=== PATIENT | female | born 1940 | race Caucasian/White ===

== ENCOUNTER 2017-03-12 11:53 | Inpatient (IN) | payer MEDICARE, OTHER ==
[~2017-03-12] VITALS: Ht 172.7 cm; Wt 75.8 kg
--- NOTE | ~2017-03-12 | PR ---
[place], [place] PROGRESS NOTE NAME: STEPHENIE DEL RIO UNIT #: [id number] ROOM: 502 DOCTOR: BEAU DAMON MD BIRTHDATE: [birth year] DOS: SUBJECTIVE: The patient was seen in the Cardiology Department just prior to a stress test today. She is a 77-year-old woman who presented to the hospital with acute respiratory failure. She was noted on admission to have new anterior T-wave inversions which were not present on electrocardiogram done in May of this year. She did not have any elevation in cardiac biomarkers and did not have any symptoms of coronary artery disease. We have been waiting for her pulmonary process to improve prior to evaluating her heart more definitively. She did have an echocardiogram on 03/13/2017, which showed mild concentric left ventricular hypertrophy with normal regional wall motion systolic and diastolic function. Since her lungs are improving, we are proceeding with a pharmacologic stress test today. PHYSICAL EXAMINATION: VITAL SIGNS: Her pulse is 72 and regular, blood pressure 130/58. She is afebrile. NECK: Supple. She has no jugular distention. Carotids are full. LUNGS: Respirations are slightly labored at rest. She does have expiratory prolongation with scattered rhonchi and wheezes. There were no rales. She had no presacral edema. HEART: Had a regular rhythm with an S4 gallop, but no S3. ABDOMEN: Benign. EXTREMITIES: Showed no edema. IMPRESSION: 1. Acute respiratory failure. Symptoms have improved with aggressive pulmonary therapy. 2. Abnormal electrocardiogram demonstrating deep symmetric anterior T-wave inversions, suggesting the presence of coronary artery disease. 3. No evidence for acute myocardial injury at this time. PLAN: The patient will undergo a pharmacologic stress test. Further recommendations will depend upon the results of her examination. [place], [place] PROGRESS NOTE NAME: STEPHENIE DEL RIO UNIT #: [id number] ROOM: 502 DOCTOR: BEAU DAMON MD BIRTHDATE: [birth year] BEAU DAMON MD CM:PNTRANS [id number] BEAU DAMON MD 03/15/17 2256 interface
--- NOTE | ~2017-03-12 | PROC NOTE ---
[place], [place] PROCEDURE NOTE NAME: [id number] UN[facility] #: [id number] ROOM: 502 DOCTOR: SELINA LECHUGA MD,BHANU BIRTHDATE: [birth year] DOS: 03/16/2017 PREOPERATIVE DIAGNOSES: Persistent severe coughing and wheezing, not responding to current medical management. POSTOPERATIVE DIAGNOSES: Severe impaction with a mucus plug the patient noted mostly in the lower endobronchial tree for the patient's finding of acute tracheobronchitis. PROCEDURE DESCRIPTION: Informed consent obtained for the patient. She was brought to the OR and placed in supine position. Conscious sedation was administered by the Anesthesia Department. After achieving appropriate sedation, airway introduced into the mouth. Bronchoscope advanced into the airway into laryngeal area. Epiglottis and vocal cords were seen. The bronchoscope advanced through the vocal cord and tracheal lumen. Tracheal lumen was identified and noted with small to moderate secretion, which was suctioned out to quintin level. Significant inflammatory changes noted in the mucosa patient's trachea and the endobronchial tree for the patient with submucosal thickening. Moderate amount of thick plugs of the mucus present mostly in the lower lobe endobronchial subsegments. There were no endobronchial obstructive lesions. Friability of mucosa was also noted. All secretions suctioned out clear with the help of normal saline wash from all of the endobronchial subsegments of right upper, right middle, right lower, left upper, lingula, and lower lobe. Procedure well tolerated. The patient without any complications. Postoperative findings will be discussed with the patient once the patient recover from the effects of acute sedation. BHANU MARKS MD CM:PROCNOTE:PROCEDURE NOTE [id number] BHANU LECHUGA MD
--- NOTE | ~2017-03-12 | PR ---
[place], [place] PROGRESS NOTE NAME: STEPHENIE DEL RIO UNIT #: [id number] ROOM: 502 DOCTOR: POPPY SMITH AMPANDA BIRTHDATE: [birth year] DOS: 03/17/2017 This progress note is to be attached to Dr. Marks's dictation. SUBJECTIVE: The patient is awake and alert and oriented and has no complaints currently. She denies any chest pain, any shortness of breath, any diarrhea. Denies any headache, blurred vision, fevers, chills or any other symptoms. She states that her cough has improved significantly and there is minimal mucus that is being excreted with her cough. OBJECTIVE: VITAL SIGNS: Temperature is 98.4, pulse rate 70, respiratory rate 18, blood pressure is 172/72, and bedside pulse oximetry is 94% on room air. GENERAL: The patient is alert, awake, oriented, in no acute distress. PULMONARY: Some rhonchi on the right side with scattered wheezes. CARDIOVASCULAR: S1, S2 heard. No murmurs. EXTREMITIES: No lower extremity edema or erythema noted. ABDOMEN: Soft, nontender. HEENT: Head is normocephalic, atraumatic. Eyes are nonicteric. NECK: Supple. IMPRESSION AND PLAN: The patient's chronic obstructive pulmonary disease exacerbation has improved significantly with the bronchoscopy and the mucus plug removal. The patient's cultures have shown no growth so far in the blood with the final cultures from ____ pending. The patient has clinically significantly improved and continues to do so. Please follow cultures and the discharge plans per primary team. Please see Dr. Marks's attached note for more details on impression and plan. ESTRELLA MCWILLIAMS DO [place], [place] PROGRESS NOTE NAME: STEPHENIE DEL RIO UNIT #: [id number] ROOM: 502 DOCTOR: ESTRELLA MCWILLIAMS DO BIRTHDATE: [birth year] BHANU MARKS MD CM:PNTRANS [phone] ESTRELLA MCWILLIAMS DO 03/17/17 1848 interface
--- NOTE | ~2017-03-12 | PR ---
[place], [place] PROGRESS NOTE NAME: STEPHENIE DEL RIO [facility] #: [id number] UNIT #: [id number] ROOM: 502 DOCTOR: SELINA LECHUGA MD,BHANU BIRTHDATE: [birth year] DOS: 03/17/2017 ADDENDUM PROGRESS NOTE. The patient was independently seen and examined today with [id number] encounter. Physical examination performed. All the labs were reviewed. Decisions made for this patient's management were personally made for today's visit. Note done by the biomedical engineering supervisor was approved. SUBJECTIVE: The patient has been noted after bronchoscopy from yesterday with marked improvement in reduction and resolution of the acute respiratory symptoms continued. The shortness of breath and cough has improved markedly. The patient denies any symptoms of chest pain. OBJECTIVE: VITAL SIGNS: Noted stable except mild elevation of systolic pressure. The blood pressure was noted 172 systolic elevated with normal diastolic pressure. LUNGS: Noted with significant improvement in the lungs in aeration at the present time. LABORATORY DATA: Culture of the bronchial washing of the patient preliminary was noted with normal inocencio. Gram stain shows many white blood cells with moderate epithelial cells, few gram-positive cocci in pairs and chains, rare gram-negative bacilli and gram-positive cocci in clusters. The patient has been showing progressive resolution of the acute asthmatic bronchitis after bronchoscopy. The symptoms improvement has been noted significant for the patient after bronchoscopy from the pulmonary standpoint. PLAN OF TREATMENT: The patient could be discharged home if decided for this patient from the pulmonary standpoint, outpatient followup could be done. BHANU MARKS MD CM:PNTRANS [id number] BHANU LECHUGA MD 03/17/17 1255 interface
--- NOTE | ~2017-03-12 | PR ---
[place], [place] PROGRESS NOTE NAME: [facility]ENIE DEL RIO [facility] [id number] UNIT #: [id number] ROOM: 502 DOCTOR: ESTRELLA MCWILLIAMS DO BIRTHDATE: [birth year] DOS: 03/16/2017 ADDENDUM. Progress note dictation is to be attached to Dr. Marks's dictation, so please see that for assessment and otherwise for other details. SUBJECTIVE: The patient is awake and alert and oriented prior to the planned bronchoscopy. She has been having some cough and intermittent shortness of breath. She denies any chest pain, nausea, vomiting, fevers or any other symptoms. OBJECTIVE: VITAL SIGNS: Temperature is 97.8, pulse rate is 93, respiratory rate is 22, blood pressure is 176/86, and pulse ox is 96% on room air. HEENT: Head is normocephalic and atraumatic. The eyes have no lesions, ulcerations and are nonicteric. There are no masses, no scars. Nares are patent. LUNG: There are crackles and rhonchi are heard with some bilateral wheezes. CARDIAC: Regular rate and rhythm. No murmurs, gallops or lower extremity edema. ABDOMEN: Soft, nontender, nondistended. EXTREMITIES: No erythema. No edema, no clubbing. SKIN: Dry and warm without any ulcerations. LABORATORY DATA: WBC is 7.2, RBC 3.73, HGB is 11.0 and HCT is 33.5, platelet count is 270. Chemistries: Sodium is 143, potassium is 3.9, chloride is 108, carbon dioxide 28, BUN is 17, creatinine 0.72, GFR is more than 60, glucose is 118, calcium is 9.7. ASSESSMENT: 1. Likely acute exacerbation of asthmatic bronchitis with mucus plugging. 2. History of breast cancer on the left side, status post lumpectomy. 3. History of essential hypertension. 4. Hypothyroidism. Please see Dr. Marks's attached dictation for more details. PLAN OF MANAGEMENT: Bronchoscopy was done earlier today and a large mucus plug was removed. Continue with current care. Please see Dr. Marks's note for more details. ESTRELLA MCWILLIAMS DO [place], [place] PROGRESS NOTE NAME: STEPHENIE DEL RIO UNIT #: [id number] ROOM: [facility] DOCTOR: ESTRELLA MCWILLIAMS DO BIRTHDATE: [birth year] BHANU MARKS MD CM:PNTRANS [phone] ESTRELLA MCWILLIAMS DO 03/16/17 1253 interface
--- NOTE | ~2017-03-12 | CON ---
[place], [place] REPORT OF CONSULTATION NAME: STEPHENIE DEL RIO [facility] #: [id number] UNIT #: [id number] ROOM: 502 DOCTOR: BHANU MONET MD BIRTHDATE: [birth year] DOS: 03/15/2017 CONSULTATION REQUESTED BY: Hospitalist services. REASON FOR CONSULTATION: Nonresolving cough and other abnormal respiratory symptoms. HISTORY OF PRESENT ILLNESS: A 77-year-old white female patient without any known chronic major pulmonary problems except some problems which has been noted with breathing, cough related few years ago, seen by the customer service sales associate and was given different medication, but no conclusive diagnosis was made. Currently, the patient has not been taking respiratory medications, presented to the hospital, admitted on 03/12/2017, as she developed acute cough about 10 days prior to the hospitalization. Symptoms started with acute chest cold-like symptoms, which is noted to progress and stated by the patient that the cold spread to the chest. She developed severe cough, which was noted initially with sputum expectoration, currently noted with no sputum expectoration. She has been coughing significantly, but unable to expectorate any sputum with hard cough attempt. Denies any symptoms of chest pain, noted some symptoms of chest tightness and also developed wheezing at home prior to the hospitalization, which still remains persistent. The shortness of breath occurs with exertion. REVIEW OF SYSTEMS: CONSTITUTIONAL: Fatigue and tiredness noted without symptoms of fever or chills. EYES: Denies any burning, redness, or tenderness. EARS, NOSE, THROAT SYMPTOMS: Denies sore throat, hoarseness, otalgia, postnasal drainage or epistaxis. CARDIOVASCULAR: Denies anginal pain, edema or pain of the lower extremities or palpitations. GASTROINTESTINAL: Dysphagia, nausea, vomiting, diarrhea, abdominal pain, hematemesis, melena, hematochezia, dysphagia, or abnormal weight loss. GENITOURINARY: Denies dysuria, suprapubic pain, or hematuria. SKIN: No lesions or rashes. MUSCULOSKELETAL: No acute joint pain, redness, or tenderness. CENTRAL NERVOUS SYSTEM: Denies dizziness, headache, diplopia or syncopal episodes. Remaining systems were reviewed, they were noted all negative. PAST MEDICAL HISTORY: 1. Essential hypertension. 2. Hyperlipidemia. 3. Left breast cancer with mastectomy in the past. 4. History of depression. 5. Hypothyroidism. PAST SURGICAL HISTORY: 1. Appendectomy. 2. Cataract extraction. 3. Left breast mastectomy. [place], [place] REPORT OF CONSULTATION NAME: STEPHENIE DEL RIO UNIT #: [id number] ROOM: [facility] DOCTOR: SELINA LECHUGA MD,BHANU BIRTHDATE: [birth year] 4. Hysterectomy. 5. Cataract extraction and lens implantation. SOCIAL HISTORY: The patient lives at home. Denies any history of alcohol use or illicit drug use. She is a nonsmoker lifetime, and has 2 children. Denies any occupation related exposure or other exposures in the past or recently. FAMILY HISTORY: Father with complications related to the cancer, coronary artery disease. Mother is also with complications of diabetes and coronary artery disease. HOME MEDICATIONS: Noted use of Arimidex, Coreg, Paxil, simvastatin and [place] Thyroid. DRUG ALLERGY HISTORY: No known drug allergies. PHYSICAL EXAMINATION: GENERAL: A 77-year-old female who has been currently noted awake and alert without any distress. The patient's height was recorded on admission as 5 feet 8 inches, weight 167 pounds, BMI 25.2. VITAL SIGNS: Normal temperature recorded since admission. Respiratory rate range between 18-12, heart rate of 64-70, blood pressure 136/48-151/69. Pulse oxygen saturation noted on room air is 97% saturation. HEENT: Shows head was atraumatic. Eyes, nonicterus. NECK: Supple. CARDIOVASCULAR: S1, S2 audible. No added sounds. LUNGS: Noted moderate decreased breath sounds with coarse breathing noted with rhonchi bilaterally. There were no crackles heard. ABDOMEN: Soft, bowel sounds are present. No tenderness. EXTREMITIES: Show no edema, clubbing, cyanosis. CENTRAL NERVOUS SYSTEM: Cranial nerves 2-12 intact. No focal deficits. MUSCULOSKELETAL: No deformities. SKIN: No lesions or rashes. LABORATORY DATA: Chest x-ray 1 view was done on 03/12/2017 was personally reviewed shows no acute pulmonary abnormalities were noted. The lungs appeared to be mildly hyperinflated. Prominent right hilar area was noted. There was no acute pulmonary infiltration visible at the present time. Chest x-ray of 07/12/2016 was reviewed appears to have similar findings, evidence of left mastectomy was visible. The CBC that was done on admission of 03/12/2017, hemoglobin 11.5, hematocrit 35.0, remaining CBC normal. Lactic acid on admission of 03/12/2017 normal. PT/PTT on 03/12/2017 normal. CMP on 03/12/2017 was noted as normal as well. Troponin 03/12/2017, three sets were normal. The CBC of the patient that was done this morning was still noted anemia, hemoglobin 10.2, hematocrit 32.0, otherwise CBC remains normal. The culture of the sputum from 03/13/2017 gets was noted normal inocencio. Preliminary findings culture results were pending. Blood culture from 03/12/2017 showed no bacterial growth. The echocardiogram that was done on this admission of 03/13/2017, per radiologist report of Dr. Negro described as a normal left ventricular ejection [place], [place] REPORT OF CONSULTATION NAME: STEPHENIE DEL RIO UNIT #: [id number] ROOM: [facility] DOCTOR: SELINA LECHUGA MD,BHANU BIRTHDATE: [birth year] fraction, mild concentric LVH was also reported. There were no valvular abnormalities described. IMPRESSION: The patient who has been currently admitted to the hospital noted with: 1. Possibility to acute asthmatic bronchitis, severe mucus impaction initially mostly started with viral infection and later noted with possibility bacterial infection. 2. History of breast cancer in the left side, status post lumpectomy, currently treated with Arimidex after surgery. 3. History of essential hypertension. 4. Hypothyroidism. PLAN OF MANAGEMENT: Obtain a PA and lateral chest x-ray to assess for any additional problems, which may be identified since hospitalization such as atelectasis, basilar areas of infiltration. She is already receiving intravenous Solu-Medrol that will be continued 60 mg b.i.d. Bronchodilator will be continued with the use of the Mucinex as well flutter valve. She would benefit from therapeutic bronchoscopy that will be done tomorrow morning. The risks and benefits of procedure were discussed and the patient will be agreeable for that. Continuation of current antibiotics. Other supportive therapy, plan of management and care. Additional treatment changes will be made based on progression of the illness. Thank you for allowing me to participate in the care of this patient. BHANU MARKS MD CM:CONSTR:REPORT OF CONSULTATION 1049 03/15/17 1222 interface
--- NOTE | ~2017-03-12 | PR ---
[place], [place] PROGRESS NOTE NAME: STEPHENIE DEL RIO [facility] #: [id number] UNIT #: [id number] ROOM: 502 DOCTOR: SELINA LECHUGA MD,BHANU BIRTHDATE: [birth year] DOS: 03/16/2017 The patient was independently seen and examined, [id number] encounter. The history was reviewed, physical examination performed. The labs were reviewed personally. The note which was done by the medical assistant instructor was approved as well. The patient was currently noted n.p.o. past midnight for bronchoscopy for persistent severe coughing and rhonchi. She has not been able to expectorate sputum. Noted n.p.o. past midnight. Vital signs essentially noted elevation of the blood pressure at 189/96, otherwise normal vital signs were noted. The auscultation of chest was noticed scattered expiratory wheezing in the lungs with moderate reduction in the breath sounds. The abdomen is soft and nontender. LABORATORY DATA: The culture of the spontaneous sputum noted as normal inocencio. The patient has a nuclear medicine stress testing done yesterday, which were reported by the radiologist on 03/15/2017 as findings of moderate size, fixed inferior septal defect with normal wall motion. It was described possibly related to the soft tissue attenuation artifact. There was no reversible ischemia noted, low risk for pharmacological myocardial perfusion study described. CBC was noted mild anemia, otherwise, normal. BMP was essentially noted grossly normal. PLAN OF TREATMENT: The patient has been noted with current severe acute asthmatic bronchitis without any major improvement noted in the respiratory status with current maximal medical therapy. She was planned for bronchoscopy and that will be done today. Any modification in the treatment will be done after the bronchoscopy. BHANU MARKS MD CM:PNTRANS [phone] BHANU LECHUGA MD 03/16/17 1137 interface
--- NOTE | ~2017-03-12 | EKG ---
[place], [place] ELECTROCARDIOGRAM REPORT NAME: STEPHENIE DEL RIO UNIT #: [id number] ROOM: 502 DOCTOR: SELINA LECHUGA MD,BHANU BIRTHDATE: [birth year] DOS: 03/15/2017 Electrocardiogram done 03/15/2017 at 11:30 a.m. Normal sinus rhythm were noted. Heart rate of 68 beats per minute. Mildly prolonged ID interval noted with first-degree heart block. LVH was noted with voltage criteria. Inversion of the T-wave noted, most likely related to the LVH in V1, V2 and V3. BHANU MARKS MD CM:EKGRPT:ELECTROCARDIOGRAM REPORT 1221 1238 BHANU LECHUGA MD
[~2017-03-12 11:53] MED LIST: ARIMIDEX1 MG PO; ARMOUR THYROID15 MG PO; BP PILL; COREG25 MG PO; COZAAR50 M1 PO; PAXIL10 MG PO; PAXIL30 M1 PO; VICODIN 5/500 505 MG PO; XALATAN 2.5 ML2.5 ML OP; ZOCOR10 MG PO
[2017-03-12 12:00] VITALS: BP 136/68
[2017-03-12 12:45] LABS: BASO % 0.1 % (0.0-1.0); EOS % 0.4 % (1.0-4.0); HEMOGLOBIN 11.5 g/dl (12.0-16.0); LYMPH # 1.5 10*3/uL (1.3-4.4); LYMPH % 20.7 % (27.0-41.0); MEAN CELL VOLUME 88.8 fl (81.0-99.0); MEAN CORPUSCULAR HGB 29.2 pg (27.0-31.0); MEAN CORPUSCULAR HGB CONC 32.9 g/dl (33.0-37.0); MONO # 0.5 10*3/uL (0.1-1.0); MONO % 7.1 % (3.0-9.0); NEUT # 5.2 10*3/uL (2.3-7.9); NEUT % 71.4 % (47.0-73.0); PLATELET COUNT AUTOMATED 206 10*3/uL (130-400); RED BLOOD COUNT 3.94 10*6/uL (4.10-5.10); WHITE BLOOD COUNT 7.2 10*3/uL (4.8-10.8)
[2017-03-12 12:54] LABS: ACT PARTIAL THROMBO TIME 25.2 SECONDS (20.8-31.5)
[2017-03-12 13:00] LABS: ALBUMIN 3.5 gm/dl (3.1-4.5); ALKALINE PHOSPHATASE 112 U/L (45-117); BUN 11 mg/dl (7-24); CHLORIDE 104 mmol/L (98-107); CREATININE 0.89 mg/dL (0.55-1.02); LIPASE 82 U/L (73-393); POTASSIUM 4.5 mmol/L (3.5-5.1); SGOT/AST 15 IU/L (3-35); SGPT/ALT 18 U/L (12-78); SODIUM 138 mmol/L (136-145); TOTAL PROTEIN 7.8 gm/dL (6.4-8.2)
[2017-03-12 13:02] LABS: TROPONIN I < 0.015 ng/ml (<0.045)
--- NOTE | 2017-03-12 14:20 | NUR ---
A 77, admitted to 5E, under the services of PAMELA Ramirez DO with a diagnosis of ABNORMAL EGK, PNEUMONITIS. Chief complaint is SOB AND COUGH. Patient arrived via bed from ER. Monitor applied. Initial assessment completed. Vital signs taken and recorded. PAMELA RAMIREZ DO notified of admission to the unit. Orders received. See assessment for past medical history, medications and allergies. Patient and/or family oriented to unit. [facility] visitation policy reviewed. Clothing/patient valuable form completed. ASSESSMENT COMPLETE. PT DECLINES FLU AND PNEUMONIA VACCINATION STATING "I NEVER GET THEM." SKIN INTACT WITH NO WOUNDS. HOME MEDICATIONS VERIFIED WITH PHARMACIST AT [facility]. ESTELA SANON
[2017-03-12] MEDS ORDERED: SENOKOT8.6 MG PO (14:27)
--- NOTE | 2017-03-12 15:33 | NUR ---
CALLED DR GONZALEZ ANSWERING SERVICE REGARDING NEW PT CONSULT. LEFT INFORMATION. WAITING HVAC INSTALLER BACK
--- NOTE | 2017-03-12 15:34 | NUR ---
DR FISCHER NOTIFIED THAT PTS HOME MEDS HAVE BEEN VERIFIED.
--- NOTE | 2017-03-12 15:42 | NUR ---
SPOKE TO DR PRADO REGARDING NEW PT CONSULT. HE WILL SEE PT TOMORROW. ORDER FOR ECHOCARDIOGRAM 03/13 RECEIVED
[2017-03-13] VITALS: BP 125/59
--- NOTE | 2017-03-13 01:00 | NUR ---
PATIENT RESTING IN BED WITH EYES CLOSED. NO COMPLAINTS OF PAIN OR DISCOMFORT. NO SIGNS OR SYMPTOMS OF DISTRESS NOTED. AROUSES TO VERBAL STIMULI. WILL CONTINUE TO MONITOR. CALL LIGHT IN REACH.
[2017-03-13 06:26] LABS: HEMATOCRIT 33.1 % (37.0-47.0); HEMOGLOBIN 10.7 g/dl (12.0-16.0); LYMPH # 0.7 10*3/uL (1.3-4.4); LYMPH % 10.7 % (27.0-41.0); MEAN CELL VOLUME 89.2 fl (81.0-99.0); MEAN CORPUSCULAR HGB 28.8 pg (27.0-31.0); MEAN CORPUSCULAR HGB CONC 32.3 g/dl (33.0-37.0); MEAN PLATELET VOLUME 10.9 fl (9.6-12.3); MONO # 0.2 10*3/uL (0.1-1.0); MONO % 2.5 % (3.0-9.0); NEUT # 5.8 10*3/uL (2.3-7.9); NEUT % 85.9 % (47.0-73.0); PLATELET COUNT AUTOMATED 224 10*3/uL (130-400); RED BLOOD COUNT 3.71 10*6/uL (4.10-5.10); WHITE BLOOD COUNT 6.8 10*3/uL (4.8-10.8)
[2017-03-13 07:01] LABS: ALBUMIN 3.2 gm/dl (3.1-4.5); ALKALINE PHOSPHATASE 104 U/L (45-117); BUN 14 mg/dl (7-24); CHLORIDE 108 mmol/L (98-107); CREATININE 0.65 mg/dL (0.55-1.02); POTASSIUM 4.6 mmol/L (3.5-5.1); SGOT/AST 14 IU/L (3-35); SGPT/ALT 18 U/L (12-78); SODIUM 141 mmol/L (136-145); TOTAL PROTEIN 7.1 gm/dL (6.4-8.2)
[2017-03-13 08:00] VITALS: BP 145/78
--- NOTE | 2017-03-13 08:13 | NUR ---
IN BED AWAKE ALERT AND ORIENTED X3, AMBULATORY. NO S/S OF DISTRESS. WILL CONT TO MONITOR. CALL LIGHT IN REACH. SEE ASSESS.
--- NOTE | 2017-03-13 08:55 | NUR ---
TYLENOL GIVEN FOR C/O HEADACHE OF 5/10. WILL CONT TO MONITOR. CALL LIGHT IN REACH.
--- NOTE | 2017-03-13 09:00 | NUR ---
Networker in to talk to patient. Patient states lives at home with sister. There are no steps in the home. Physician: kortney kiran Pharmacy: [facility] Home health services: none Patient's level of ADLs: INDEPENDENT Patient has working utilities: all working DME: none Follow-up physician's appointment after d/c: will be made by hospitalist nurse director upon discharge Does patient want to access PORTAL?: no Discharge plan discussed with patient, patient lives at home with sister, patient is independent in adls and ambulation, she states she will be returning home when able and denies any home needs. MARGOT HENDERSON
--- NOTE | 2017-03-13 09:55 | NUR ---
TYLENOL EFF AT THIS TIME PER PT. WILL CONT TO MONITOR. CALL LIGHT IN REACH.
--- NOTE | 2017-03-13 11:55 | NUR ---
PT. INSTRUCTED ON FLUTTER DEVICE, RETURNED DEMONSTRATION WITHOUT DIFFICULTY, DIRECTED TO PERFORM Q1HR
[2017-03-13 12:00] VITALS: BP 133/60
[2017-03-13 16:00] VITALS: BP 145/67
--- NOTE | 2017-03-13 19:46 | NUR ---
PATIENT AWAKE IN BED AT THIS TIME. DENIES ANY PAIN/SOB AT REST. PATIENT DOES C/O PRODUCTIVE COUGH. EDUCATED ABOUT SPUTUM CULTURE NEEDED. ALSO ENCOURAGED USE OF FLUTTER AT BEDSIDE. WILL CONTINUE TO MONITOR. CALL LIGHT LEFT IN REACH.
[2017-03-13 20:00] VITALS: BP 151/70
[2017-03-14 00:02] VITALS: BP 162/74
[2017-03-14 03:00] VITALS: BP 129/57
--- NOTE | 2017-03-14 06:10 | NUR ---
PATIENT MEDICATED WITH PO TYLENOL PER PRN ORDER FOR C/O HEADACHE AND GENERALIZED PAIN IN BACK/NECK. WILL MONITOR EFFECTIVENESS. CALL LIGHT LEFT IN REACH.
[2017-03-14 06:12] LABS: BASO % 0.1 % (0.0-1.0); HEMATOCRIT 30.4 % (37.0-47.0); HEMOGLOBIN 9.8 g/dl (12.0-16.0); LYMPH # 0.8 10*3/uL (1.3-4.4); LYMPH % 7.6 % (27.0-41.0); MEAN CELL VOLUME 89.9 fl (81.0-99.0); MEAN CORPUSCULAR HGB CONC 32.2 g/dl (33.0-37.0); MEAN PLATELET VOLUME 10.9 fl (9.6-12.3); MONO # 0.3 10*3/uL (0.1-1.0); MONO % 3.1 % (3.0-9.0); NEUT # 8.8 10*3/uL (2.3-7.9); NEUT % 88.5 % (47.0-73.0); PLATELET COUNT AUTOMATED 233 10*3/uL (130-400); RED BLOOD COUNT 3.38 10*6/uL (4.10-5.10); RED CELL DISTRI WIDTH 13.3 % (0-14.5); WHITE BLOOD COUNT 9.9 10*3/uL (4.8-10.8)
[2017-03-14 06:46] LABS: BUN 15 mg/dl (7-24); CHLORIDE 113 mmol/L (98-107); CREATININE 0.63 mg/dL (0.55-1.02); POTASSIUM 4.4 mmol/L (3.5-5.1); SODIUM 144 mmol/L (136-145)
[2017-03-14 08:00] VITALS: BP 146/62
--- NOTE | 2017-03-14 09:00 | NUR ---
case management visits with patient, patient denies any home needs
--- NOTE | 2017-03-14 11:05 | NUR ---
DR. MARKS WAS NOTIFIED OF CONSULT.
[2017-03-14 12:00] VITALS: BP 118/57
[2017-03-14 16:00] VITALS: BP 108/79
--- NOTE | 2017-03-14 16:58 | NUR ---
DR. REEVES INFORMED ME THAT PATIENT IS HAVING A STRESS TEST IN AM OF 03-15-17 AND SHE IS NOT TO HAVE ANYTHING TO EAT OR ANY CAFFIENE 6 HOURS PRIOR TO TEST. I WILL PASS ON AT CHANGE OF SHIFT AND REMIND THE PATIENT.
[2017-03-14 20:00] VITALS: BP 151/69
--- NOTE | 2017-03-14 20:02 | NUR ---
PATIENT AWAKE IN BED AT THIS TIME, A&OX3. PATIENT STATES SHE IS FEELING MUCH BETTER THAN YESTERDAY. STILL REPORTS COUGH WITH MINIMAL SPUTUM PRODUCTION. FLUTTER AT BEDSIDE, USE ENCOURAGED. DISCUSSED PLANS FOR STRESS TEST TOMORROW AND NPO STATUS/NO CAFFEINE AFTER 6 AM. PATIENT VERBALIZES UNDERSTANDING. WILL CONTINUE TO MONITOR. CALL LIGHT LEFT IN REACH.
--- NOTE | 2017-03-14 22:12 | NUR ---
PT MEDICATED WITH PO RESTORIL PER PRN ORDER FOR C/O SLEEPLESSNESS. WILL MONITOR EFFECTIVENESS. CALL LIGHT LEFT IN REACH.
[2017-03-15] VITALS: BP 137/54
--- NOTE | 2017-03-15 00:10 | NUR ---
PATIENT ASLEEP IN BED AT THIS TIME. RESPIRATIONS EASY, NO S/S OF DISTRESS NOTED. WILL MONITOR. CALL LIGHT LEFT IN REACH.
--- NOTE | 2017-03-15 04:17 | NUR ---
PATIENT RESTING IN BED. NO S/S OF DISTRESS NOTED. WILL MONITOR. CALL LIGHT IN REACH.
[2017-03-15 06:26] LABS: HEMOGLOBIN 10.2 g/dl (12.0-16.0); LYMPH # 0.9 10*3/uL (1.3-4.4); LYMPH % 9.4 % (27.0-41.0); MEAN CELL VOLUME 90.1 fl (81.0-99.0); MEAN CORPUSCULAR HGB 28.7 pg (27.0-31.0); MEAN CORPUSCULAR HGB CONC 31.9 g/dl (33.0-37.0); MEAN PLATELET VOLUME 10.8 fl (9.6-12.3); MONO # 0.4 10*3/uL (0.1-1.0); MONO % 3.8 % (3.0-9.0); NEUT # 8.4 10*3/uL (2.3-7.9); NEUT % 85.9 % (47.0-73.0); PLATELET COUNT AUTOMATED 257 10*3/uL (130-400); RED BLOOD COUNT 3.55 10*6/uL (4.10-5.10); RED CELL DISTRI WIDTH 13.5 % (0-14.5); WHITE BLOOD COUNT 9.8 10*3/uL (4.8-10.8)
[2017-03-15 06:42] LABS: BUN 15 mg/dl (7-24); CHLORIDE 110 mmol/L (98-107); CREATININE 0.75 mg/dL (0.55-1.02); POTASSIUM 4.1 mmol/L (3.5-5.1); SODIUM 143 mmol/L (136-145)
[2017-03-15 08:00] VITALS: BP 130/58
--- NOTE | 2017-03-15 09:27 | NUR ---
case management visits with patient, patient states she having a stress test today and a broch tomorrow, patient denies any home needs
--- NOTE | 2017-03-15 13:37 | NUR ---
INFORMED SIGNED CONSENT OBTAINED FOR LEXISCAN STRESS TEST WITH DR DAMON RESTING EKG NSR HR 66 BP 140/80. PULSE OX 95% CRACKLES AND EXP WHEEZES. PT COMPLETED ONE MINUTE OF A LEXISCAN PROTOCOL WITH PT RECEIVING LEXISCAN 0.4MG IV OVER 10 SECONDS. NO ARRHYTHMIAS OR ST CHANGES NOTED. PT C/O BREATHLESSNESS WITH INFUSION. LAST RECOVERY HR OF 88 BP 152/62. PT IN STABLE CONDITION, AWAITING NUCLEAR IMAGES.
[2017-03-15 16:00] VITALS: BP 159/70
[2017-03-15 20:00] VITALS: BP 142/64
--- NOTE | 2017-03-15 20:54 | NUR ---
PATIENT ENCOURAGED TO USE FLUTTER. SHE SAID SHE USES IT FREQUENTLY THROUGHOUT THE DAY.
--- NOTE | 2017-03-15 22:27 | NUR ---
RESTORIL WAS GIVEN FOR INSOMNIA PER PATIENT REQUEST. WILL MONITOR.
[2017-03-16] VITALS (8 sets, daily range): BP systolic 133–189; BP diastolic 61–96
[2017-03-16 06:08] LABS: BASO % 0.1 % (0.0-1.0); HEMATOCRIT 33.5 % (37.0-47.0); LYMPH # 0.9 10*3/uL (1.3-4.4); LYMPH % 11.9 % (27.0-41.0); MEAN CELL VOLUME 89.8 fl (81.0-99.0); MEAN CORPUSCULAR HGB 29.5 pg (27.0-31.0); MEAN CORPUSCULAR HGB CONC 32.8 g/dl (33.0-37.0); MEAN PLATELET VOLUME 10.3 fl (9.6-12.3); MONO # 0.3 10*3/uL (0.1-1.0); NEUT # 5.9 10*3/uL (2.3-7.9); NEUT % 81.9 % (47.0-73.0); PLATELET COUNT AUTOMATED 270 10*3/uL (130-400); RED BLOOD COUNT 3.73 10*6/uL (4.10-5.10); RED CELL DISTRI WIDTH 13.5 % (0-14.5); WHITE BLOOD COUNT 7.2 10*3/uL (4.8-10.8)
[2017-03-16 06:32] LABS: BUN 17 mg/dl (7-24); CHLORIDE 108 mmol/L (98-107); CREATININE 0.72 mg/dL (0.55-1.02); POTASSIUM 3.9 mmol/L (3.5-5.1); SODIUM 143 mmol/L (136-145)
--- NOTE | 2017-03-16 09:00 | NUR ---
case management visits with patient, patient denies any home needs at this time
--- NOTE | 2017-03-16 22:23 | NUR ---
MEDICATED WITH RESTORIL FOR COMPLAINTS OF INSOMNIA. ANXIOUS TO GO HOME, HOPING TO BE DISCHARGED TOMORROW. WILL CONTINUE TO MONITOR. CALL LIGHT IN REACH.
--- NOTE | 2017-03-16 23:30 | NUR ---
RESTORIL EFFECTIVE. PATIENT RESTING IN BED WITH EYES CLOSED AT THIS TIME. NO SIGNS OR SYMPTOMS OF DISTRESS NOTED. WILL CONTINUE TO MONITOR. CALL LIGHT IN REACH.
[2017-03-17] VITALS: BP 155/81
--- NOTE | 2017-03-17 07:41 | NUR ---
Shift chart check completed.
[2017-03-17 08:00] VITALS: BP 172/72
--- NOTE | 2017-03-17 09:23 | NUR ---
case management visits with patient, patient denies any home needs at this time
--- NOTE | 2017-03-17 09:30 | NUR ---
PT SITTING AT SIDE OF BED. REFUSING LOVENOX. PT UP IN ROOM PRN WALKING, AND STATES GOING TO GO HOME TODAY.
[2017-03-17] MEDS ORDERED: LEVOFLOXACIN500 MG PO (11:02)
[2017-03-17 11:30] VITALS: BP 132/86
--- NOTE | 2017-03-17 11:34 | NUR ---
Discharge instructions reviewed with patient. Patient receptive and verbalizes understanding. Follow-up care understood. Written instructions given to patient. 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 iv removed, dressing applied. pt without questions at this time. BIMAL MARTINEZ
[2017-03-17 19:05] LABS: ACID FAST SMEAR Negative (.); ACID FAST SPEC PROCESSING Concentration (.)
== END 2017-03-17 11:34 | disposition home or self-care (01) | DRG 189 ==
LOC: ED 11:53 → EDHOLD 13:44 → 5E 13:44
PROVIDERS: Emergency Medicine; Family Medicine; Internal Medicine; Internal Medicine Critical Care Medicine; Internal Medicine Nephrology; Student in an Organized Health Care Education/Training Program; ADMIT Internal Medicine
PROC: 4A02XM4 Measurement of Cardiac Total Activity, External Approach (ICD-10-PCS; principal; 2017-03-15)
PROC: 3E073KZ Introduction of Other Diagnostic Substance into Coronary Artery, Percutaneous Approach (ICD-10-PCS; principal; 2017-03-15)
PROC: 0B958ZZ Drainage of Right Middle Lobe Bronchus, Via Natural or Artificial Opening Endoscopic (ICD-10-PCS; 2017-03-16)
PROC: 0B988ZZ Drainage of Left Upper Lobe Bronchus, Via Natural or Artificial Opening Endoscopic (ICD-10-PCS; 2017-03-16)
PROC: 0B998ZZ Drainage of Lingula Bronchus, Via Natural or Artificial Opening Endoscopic (ICD-10-PCS; 2017-03-16)
PROC: 0B948ZZ Drainage of Right Upper Lobe Bronchus, Via Natural or Artificial Opening Endoscopic (ICD-10-PCS; 2017-03-16)
PROC: 0BC68ZZ Extirpation of Matter from Right Lower Lobe Bronchus, Via Natural or Artificial Opening Endoscopic (ICD-10-PCS; 2017-03-16)
PROC: 0BCB8ZZ Extirpation of Matter from Left Lower Lobe Bronchus, Via Natural or Artificial Opening Endoscopic (ICD-10-PCS; 2017-03-16)
PROC: 0B928ZZ Drainage of Carina, Via Natural or Artificial Opening Endoscopic (ICD-10-PCS; 2017-03-16)
DX: J96.00 Acute respiratory failure, unspecified whether with hypoxia or hypercapnia (principal); J18.9 Pneumonia, unspecified organism; J44.0 Chronic obstructive pulmonary disease with (acute) lower respiratory infection; J45.901 Unspecified asthma with (acute) exacerbation; E83.41 Hypermagnesemia; E87.1 Hypo-osmolality and hyponatremia; I48.91 Unspecified atrial fibrillation; J44.1 Chronic obstructive pulmonary disease with (acute) exacerbation; J20.9 Acute bronchitis, unspecified; Z96.1 Presence of intraocular lens; H40.9 Unspecified glaucoma; F32.9 Major depressive disorder, single episode, unspecified; R79.82 Elevated C-reactive protein (CRP); D72.810 Lymphocytopenia; R79.89 Other specified abnormal findings of blood chemistry; R94.31 Abnormal electrocardiogram [ECG] [EKG]; E03.9 Hypothyroidism, unspecified; I10 Essential (primary) hypertension; E78.5 Hyperlipidemia, unspecified; Z78.9 Other specified health status; Z90.12 Acquired absence of left breast and nipple; Z85.3 Personal history of malignant neoplasm of breast; Z82.49 Family history of ischemic heart disease and other diseases of the circulatory system; Z79.899 Other long term (current) drug therapy; Z90.49 Acquired absence of other specified parts of digestive tract; Z98.49 Cataract extraction status, unspecified eye; Z90.710 Acquired absence of both cervix and uterus; Z83.3 Family history of diabetes mellitus; Z80.8 Family history of malignant neoplasm of other organs or systems

== ENCOUNTER 2024-01-13 15:20 | Emergency (ER) | payer MEDICARE, OTHER ==
[~2024-01-13] VITALS: Ht 172.7 cm; Wt 71.2 kg
[~2024-01-13 15:20] MED LIST changes: +LEVOFLOXACIN500 MG PO; +SENOKOT8.6 MG PO
[2024-01-13] MEDS ORDERED: Acetaminophen/Oxycodone 5 MG/325 MG TABLET PO ONE (15:55)
[2024-01-13] MEDS ORDERED: MELOXICAM15 MG PO (16:30)
== END 2024-01-13 16:31 | disposition home or self-care (01) ==
LOC: ED 15:20
DX: S93.602A Unspecified sprain of left foot, initial encounter (principal); I10 Essential (primary) hypertension; E78.5 Hyperlipidemia, unspecified; Z90.49 Acquired absence of other specified parts of digestive tract; Z90.710 Acquired absence of both cervix and uterus; Z90.12 Acquired absence of left breast and nipple; Z98.890 Other specified postprocedural states; W10.9XXA Fall (on) (from) unspecified stairs and steps, initial encounter; Y93.89 Activity, other specified; Y92.89 Other specified places as the place of occurrence of the external cause; Y99.8 Other external cause status